=== PATIENT | male | born 1975 | race Caucasian/White ===

== ENCOUNTER 2018-02-09 15:17 | Inpatient (IN) | payer BC, OTHER ==
[~2018-02-09] VITALS: Ht 182.9 cm; Wt 84.4 kg
[2018-02-09] VITALS (8 sets, daily range): BP systolic 114–138; BP diastolic 62–82
--- NOTE | ~2018-02-09 | 2DMMODE ---
[facility] [address] [place] [address] 2 D/M-MODE ECHOCARDIOGRAM Name: DIONNE PRESSLEY Phyllis Room #: 455-P [facility] ..#: [id number] Admission: 02/09/18 Attend Phys: Abner Daley MD Discharge: Date of : 77 Date of Service: 02/10/18 1333 Report #: [id number] THIS REPORT FOR: //name// APPROVED REPORT Study performed: 02/10/2018 12:35:59 EXAM: Comprehensive 2D, Doppler, and color-flow Echocardiogram Patient Location: Echo lab Room #: [facility] Status: routine BSA: 2.07 HR: 61 bpm BP: 115/71 mmHg Rhythm: NSR Other Information Study Quality: Good Indications Syncope 2D Dimensions RVDd: 34.79 mm IVSd: 10.32 (7-11mm) LVOT Diam: 22.50 (18-24mm) LVDd: 48.44 mm PWd: 9.81 (7-11mm) Ascending Ao: 30.84 (22-36mm) LVDs: 30.47 (25-40mm) Aortic Root: 29.77 mm IVC: 17.00 mm Volumes Left Atrial Volume (Systole) Single Plane 4CH: 76.61 mL Single Plane 2CH: 54.33 mL LA ESV Index: 33.00 mL/m2 Aortic Valve AoV Peak Mathew.: 1.54 m/s AO Peak Gr.: 9.48 mmHg LVOT Max P.12 mmHg LVOT Max V: 1.13 m/s CRISPIN Vmax: 2.92 cm2 Mitral Valve E/A Ratio: 2.7 MV Decel. Time: 147.10 ms MV E Max Mathew.: 0.82 m/s [facility] [address] [place] [address] 2 D/M-MODE ECHOCARDIOGRAM Name: HUANDIONNE Phyllis Room #: 455-P [facility].#: [id number] Admission: 02/09/18 Attend Phys: Abner Daley MD Discharge: Date of : 77 Date of Service: 02/10/18 1333 Report #: [id number] MV A Mathew.: 0.30 m/s MV PHT: 42.66 ms IVRT: 73.82 ms Pulmonary Valve PV Peak Mathew.: 0.91 m/s PV Peak Gr.: 3.33 mmHg Pulmonary Vein P Vein S: 0.48 m/s P Vein A: 0.25 m/s P Vein D: 0.30 m/s P Vein A Dur.: 96.9 msec P Vein S/D Ratio: 1.60 Tricuspid Valve TR Peak Mathew.: 2.36 m/s TR Peak Gr.: 22.35 mmHg PA Pressure: 27.00 mmHg Left Ventricle The left ventricle is normal size. There is normal LV segmental wall motion. There is normal left ventricular wall thickness. Left ventricular systolic function is normal. The left ventricular ejection fraction is within the normal range. LVEF is 55-60%. The left ventricular diastolic function is normal. Right Ventricle The right ventricle is normal size. The right ventricular systolic function is normal. Atria Left atrium is at the upper limits of normal. Right atrium is at the upper limits of normal. Aortic Valve The aortic valve is normal in structure. No aortic regurgitation is present. There is no aortic valvular stenosis. Mitral Valve The mitral valve is normal in structure. Mild mitral regurgitation. No evidence of mitral valve stenosis. Tricuspid Valve The tricuspid valve is normal in structure. There is mild tricuspid regurgitation. Estimated PAP 27 mmHg. There is no pulmonary hypertension. Pulmonic Valve [address] [address] 2 D/M-MODE ECHOCARDIOGRAM Name: DIONNE PRESSLEY Phyllis Room #: 455-P [facility]#: [id number] Admission: 02/09/18 Attend Phys: Abner Daley MD Discharge: Date of : 77 Date of Service: 02/10/18 1333 Report #: [id number] The pulmonary valve is normal in structure. There is no pulmonic valvular regurgitation. Great Vessels The aortic root is normal in size. IVC is normal in size and collapses >50% with inspiration. Pericardium There is no pericardial effusion. <Conclusion> The left ventricle is normal size. LVEF is 55-60%. Left atrium is at the upper limits of normal. The aortic valve is normal in structure. No aortic regurgitation is present. The mitral valve is normal in structure. Mild mitral regurgitation. The tricuspid valve is normal in structure. There is mild tricuspid regurgitation. Estimated PAP 27 mmHg. There is no pulmonary hypertension. The pulmonary valve is normal in structure. There is no pericardial effusion. <ELECTRONICALLY SIGNED> By: Robert Whyte MD 02/10/18 1333 1333 133 Robert Whyte MD /INF
--- NOTE | ~2018-02-09 | EKG ---
[place] [address] [facility] [place] [address] ELECTROCARDIOGRAM REPORT Name: DIONNE PRESSLEY Room #: [facility]#: [id number] Admission: 02/09/18 Attend Phys: Discharge: Date of : 77 Report #: [id number] THIS REPORT FOR: //name// [facility] ED Test Date: 2018-02-09 Test Time: 15:48:51 Pat Name: DIONNE PRESSLEY Department: Room: Gender: Rehab Director Occupational Therapist: LUCINA : 1975 Requested By: Katherin Mcghee Order Number: [id number] MD: Kana Rowland Measurements Intervals [place] Rate: 85 P: 75 RI: 145 QRS: 66 QRSD: 87 T: 50 QT: 352 QTc: 419 Interpretive Statements Sinus rhythm Probable left atrial enlargement No previous ECG available for comparison Electronically Signed On 02-09-2018 17:05:59 CDT by Kana Rowland [email or web address] <ELECTRONICALLY SIGNED> By: Kana Rowland MD 02/09/18 1705 1548 1548 Kana Rowland MD /JUVENCIO
--- NOTE | ~2018-02-09 | PATH ---
[facility] [address] [place] [address] PATHOLOGY RPT PROCEDURE Name: CHRISTIAN PRESSLEY Room #: 455-P [facility] IN M.R.#: [id number] Admission: 02/09/18 Date of : 77 Discharge: 02/10/18 Report #: [id number] Path Case #: [id number] [facility] Accession Number: [id number] . 01 Material submitted: . BX OF GASTRITIS . 01 Clinical history: . Possible gastric ulcer per CT Duodenitis, duodenal erosions, gastritis, esophagitis rule out H. pylori . 02 Diagnosis: Gastric mucosa, gastritis rule out H. pylori, endoscopic biopsy: - Mild reactive gastropathy. - Negative for intestinal metaplasia or atrophy. - Negative for Helicobacter pylori (properly controlled immunohistochemical stain performed). (IUV:pit 02/13/2018) QTP/02/13/2018 . 02 Electronically signed: . Miley U Vadlamani, MD, Pathologist NPI- [id number] . 01 Gross description: . The specimen is received in formalin, labeled "Fabiana Christian, BX of gastritis" and consists of a fragment of soft pink-gutierrez tissue measuring 0.5 x 0.3 x 0.1 cm which is entirely submitted in A1. (SDY; 02/10/2018) SYU/SYU . 02 Pathologist provided ICD-10: K31.9 . 02 CPT . 090101, N93871 Specimen Comment: A courtesy copy of this report has been sent to Specimen Comment: [phone], , . Specimen Comment: Report sent to , DR SHARMA / DR LARSON Performed at: [address], [place] [id number] MD Osiel Page MD Phone: [phone] Performed at: [address] [id number] MD Miley Carrasco MD Phone: [phone]
[~2018-02-09 15:17] MED LIST: NO HOME MEDS; NORCO 5-325 TA1 EACH PO
[2018-02-09 16:15] LABS: ABSOLUTE NEUTROPHILS 11.1 thou/uL (1.4-8.2); BASOPHILS 0.3 % (0.0-2.0); EOSINOPHILS 0.1 % (0.0-3.0); HEMATOCRIT 48.2 % (42.0-52.0); HEMOGLOBIN 16.8 gm/dL (14.0-18.0); LYMPHOCYTES 5.5 % (24.0-44.0); MCH 29.7 pg (26.0-34.0); MCHC 34.7 g/dL (28.0-37.0); MCV 85.5 fL (80.0-100.0); MONOCYTES 4.9 % (1.0-8.0); PLATELET COUNT 265 thou/uL (150-400); POLYS 89.2 % (36.0-66.0); RBC 5.64 mil/uL (4.50-6.00); RDW 12.9 % (10.5-14.5); WBC 12.4 thou/uL (4.0-11.0)
[2018-02-09 16:18] LABS: ANION GAP 11 mmol/L (7-16); BUN 17 mg/dL (7-18); CALCIUM 9.8 mg/dL (8.5-10.1); CHLORIDE 105 mmol/L (98-107); CO2 22 mmol/L (21-32); CREATININE 1.1 mg/dL (0.7-1.3); GLUCOSE 109 mg/dL (74-106); POTASSIUM 3.6 mmol/L (3.5-5.1); SODIUM 138 mmol/L (136-145)
[2018-02-09 16:26] LABS: ALBUMIN 4.2 g/dL (3.4-5.0); SGOT 38 U/L (15-37); SGPT 67 U/L (30-65); TOTAL BILIRUBIN 2.7 mg/dL (<0.1-1.0); TOTAL PROTEIN 8.1 g/dL (6.4-8.2); TROPONIN-I <0.06 ng/mL (<0.06)
[2018-02-09 16:57] LABS: URINE BILIRUBIN NEGATIVE (Negative); URINE BLOOD NEGATIVE (Negative); URINE CLARITY CLEAR; URINE COLOR YELLOW; URINE GLUCOSE-RANDOM* NEGATIVE (Negative); URINE KETONES NEGATIVE (Negative); URINE LEUKOCYTES-REFLEX NEGATIVE (Negative); URINE NITRITE-REFLEX NEGATIVE (Negative); URINE PROTEIN (DIPSTICK) TRACE (Negative); URINE SPECIFIC GRAVITY 1.015 (1.005-1.035); URINE UROBILINOGEN 0.2 E.U./dl (0.2-1.0)
[2018-02-09 20:18] LABS: DIRECT BILIRUBIN 0.3 mg/dL (<0.1-0.3); TOTAL BILIRUBIN 2.7 mg/dL (<0.1-1.0)
[2018-02-10 05:31] LABS: HEMATOCRIT 40.8 % (42.0-52.0); MCH 30.2 pg (26.0-34.0); MCHC 35.3 g/dL (28.0-37.0); MCV 85.7 fL (80.0-100.0); RBC 4.76 mil/uL (4.50-6.00); RDW 13.1 % (10.5-14.5); WBC 6.1 thou/uL (4.0-11.0)
[2018-02-10 05:32] LABS: HEMOGLOBIN 14.4 gm/dL (14.0-18.0)
[2018-02-10 05:48] LABS: ALBUMIN 3.2 g/dL (3.4-5.0); CALCIUM 8.3 mg/dL (8.5-10.1); POTASSIUM 3.3 mmol/L (3.5-5.1); TOTAL BILIRUBIN 2.4 mg/dL (<0.1-1.0); TOTAL PROTEIN 6.3 g/dL (6.4-8.2)
[2018-02-10 08:00] VITALS: BP 115/71
[2018-02-10] MEDS ORDERED: PANTOPRAZOLE SO40 M1 PO (18:22)
[2018-02-10 18:27] VITALS: BP 115/71
== END 2018-02-10 18:45 | disposition home or self-care (01) | DRG 384 ==
LOC: ER 15:17 → 4W 20:15 → EROBS 20:15 → 4W 22:18
PROVIDERS: Nurse Practitioner Family; Physician Assistant
PROC: 0DB68ZX Excision of Stomach, Via Natural or Artificial Opening Endoscopic, Diagnostic (ICD-10-PCS; principal; 2018-02-10)
DX: K25.9 Gastric ulcer, unspecified as acute or chronic, without hemorrhage or perforation (principal); K22.10 Ulcer of esophagus without bleeding; K29.70 Gastritis, unspecified, without bleeding; M76.60 Achilles tendinitis, unspecified leg; K44.9 Diaphragmatic hernia without obstruction or gangrene; K29.80 Duodenitis without bleeding; Z87.442 Personal history of urinary calculi; Z79.899 Other long term (current) drug therapy
CPT/HCPCS: 10045; 62110; 62900; 70005